=== PATIENT | male | born 1955 | race Caucasian/White ===

== ENCOUNTER 2016-08-05 10:56 | Day surgery (SDC) | payer OTHER ==
[2016-08-05] MEDS ORDERED: LACTATED RINGERS 1,000 ML IV ONE (12:07)
[2016-08-05] MEDS ORDERED: fentaNYL 250 MCG/5 ML VIAL IVP ONE (14:21)
[2016-08-05] MEDS ORDERED: MIDAZOLAM 2 MG/2 ML VIAL IVP ONE (14:21)
== END 2016-08-05 10:57 | disposition home or self-care (01) ==
PROC: 0DJD8ZZ Inspection of Lower Intestinal Tract, Via Natural or Artificial Opening Endoscopic (ICD-10-PCS; principal; 2016-08-05 12:10)
DX: Z12.11 Encounter for screening for malignant neoplasm of colon (principal); Q27.33 Arteriovenous malformation of digestive system vessel; K64.8 Other hemorrhoids; K57.30 Diverticulosis of large intestine without perforation or abscess without bleeding
CPT/HCPCS: 45378; J3010; J7120

== ENCOUNTER 2017-06-16 19:46 | Outpatient (CLI) | payer OTHER ==
--- NOTE | 2017-06-16 20:39 | XRAY Preliminary Report ---
Exam: XR ABDOMEN 1 VIEW IMPRESSION: Couple of left-sided pelvic calcific densities age measuring 3 mm, could represent left u reteral vesicular Junction calculi versus phleboliths. Possible right ureteral calculus projecting ov er the right L4 transverse process measuring 4 mm. Possible right distal ureteral calculus measuring 4.5 mm. Distal to this is another focal density, could represent a right ureteral vesicular junction calculus versus phlebolith, measures 3 mm. RADIA The above findings were discussed with by Dr. Mariaa Aguilar at 20:36 hrs on 06/16/17. SITE ID: [id number]
--- NOTE | 2017-06-16 20:47 | XRAY Report ---
EXAM: ABDOMEN RADIOGRAPHY EXAM DATE: 06/16/2017 08:11 PM. CLINICAL HISTORY: Kidney stones. COMPARISON: CT abdomen and pelvis 07/03/2016. TECHNIQUE: 1 view. FINDINGS: Bowel Gas Pattern: Within normal limits. No dilated loops. Other: Couple of left-sided pelvic calcific densities each measuring 3 mm, could represent left urete rovesical junction calculi versus phleboliths. Possible right ureteral calculus projecting over the r ight L4 transverse process measuring 4 mm. Possible right distal ureteral calculus measuring 4.5 mm. Distal to this is another focal density, could represent a right ureterovesical junction calculus vasiliy rhonda phlebolith, measures 3 mm. IMPRESSION: Couple of left-sided pelvic calcific densities age measuring 3 mm, could represent left u reterovesical junction calculi versus phleboliths. Possible right ureteral calculus projecting over t he right L4 transverse process measuring 4 mm. Possible right distal ureteral calculus measuring 4.5 mm. Distal to this is another focal density, could represent a right ureterovesical junction calculus versus phlebolith, measures 3 mm. RADIA The above findings were discussed with Dr. Carmona by Dr. Mariaa Aguilar at 20:36 hrs on 06/16/17. Referring Provider Line: [phone] SITE ID: [id number]
--- NOTE | 2017-06-17 08:57 | Ultrasound Report ---
RETROPERITONEAL ULTRASOUND: 06/16/2017 HISTORY: Flank pain, renal stones. History of right renal lithotripsy. COMPARISON: 11/08/2008 TECHNIQUE: Real-time scanning by the centrifugal operator with saved static images reviewed. FINDINGS: Right kidney: 11.5 x 6.0 x 6.3 cm. Small cyst 1.9 x 0.8 x 1.4 cm. No evidence of stones , perinephric collection, or hydronephrosis. Left kidney: 11.7 x 5.1 x 5.5 cm. There is a 5 mm nonobstructing mid pole stone. Left kidney is ot herwise unremarkable. Prevoid bladder volume 377 mL, postvoid 77 mL. Bilateral ureteral jets are present. IMPRESSION: NO EVIDENCE OF HYDRONEPHROSIS. A 5 MM LEFT RENAL MID POLE NONOBSTRUCTING STONE. MODERA TE POSTVOID RESIDUAL VOLUME. SIMPLE RIGHT RENAL CYST. JOB #: [id number] EXT JOB #:[id number]
== END 2017-06-16 19:47 | disposition home or self-care (01) ==
LOC: DI 19:46
PROVIDERS: ATTEND Urology
DX: N20.0 Calculus of kidney (principal); Q61.01 Congenital single renal cyst
CPT/HCPCS: 74000; 76770

== ENCOUNTER 2017-11-21 16:19 | Outpatient (CLI) | payer OTHER ==
--- NOTE | 2017-11-23 23:12 | XRAY Report ---
EXAM: ABDOMEN RADIOGRAPHY EXAM DATE: 11/21/2017 04:56 PM. CLINICAL HISTORY: Left-sided abdominal pain. History of kidney stones. COMPARISON: Abdominal radiograph 06/16/2017. CT [facility]UB 07/03/2016. TECHNIQUE: 1 view. FINDINGS: Lung Bases: Clear as visualized. Bowel Gas Pattern: Within normal limits. No abnormal stool volume or dilated loops. Bones: Minimal right convex curvature centered at L2-L3. Multilevel degenerative disk disease, most p ronounced in the lower lumbar spine. Other: 3 mm calcification projecting over the left renal shadow. No abnormal calcifications are seen along the expected courses of the ureters. IMPRESSION: Probable 3 mm left intrarenal calculus. [facility] Referring Provider Line: [phone] SITE ID: [id number]
== END 2017-11-21 16:20 | disposition home or self-care (01) ==
LOC: DI 16:19
PROVIDERS: ATTEND Urology
DX: N20.0 Calculus of kidney (principal)
CPT/HCPCS: 74018

== ENCOUNTER 2018-09-10 11:21 | Outpatient (CLI) | payer OTHER ==
--- NOTE | 2018-09-10 12:27 | XRAY Report ---
Reason: PAIN IN LEFT KNEE Procedure Date: 09/10/2018 Accession Number: [id number] / [id number] Procedure: XR - Knee 3 View LT CPT Code: FULL RESULT: EXAM: LEFT KNEE RADIOGRAPHY EXAM DATE: 09/10/2018 11:37 AM. CLINICAL HISTORY: Pain in left knee. COMPARISON: None. TECHNIQUE: 3 views. FINDINGS: Bones: Normal. No fractures or bone lesions. Joints: Mild tricompartmental degenerative changes. Soft Tissues: Normal. No soft tissue swelling. IMPRESSION: Mild tricompartmental degenerative changes. RADIA
== END 2018-09-10 11:22 | disposition home or self-care (01) ==
LOC: DI 11:21
PROVIDERS: ATTEND Internal Medicine
DX: M17.12 Unilateral primary osteoarthritis, left knee (principal)